=== PATIENT | female | born 1965 | race Caucasian/White ===

== ENCOUNTER 2019-03-18 12:25 | Emergency (ER) | payer OTHER ==
[~2019-03-18] VITALS: Ht 162.6 cm; Wt 112.5 kg
[2019-03-18 12:53] LABS: BASOPHILS ABSOLUTE AUTO 0.03 K/mm3 (0.00-0.23); BASOPHILS PERCENT AUTO 1 % (0-2); EOSINOPHILS ABSOLUTE AUTO 0.52 K/mm3 (0.00-0.68); EOSINOPHILS PERCENT AUTO 8 % (0-6); Hematocrit 40.3 % (33.0-51.0); Hemoglobin 13.5 g/dL (11.5-16.0); IMMATURE GRAN ABSOLUTE AUTO 0.01 K/mm3 (0.00-0.10); IMMATURE GRAN PERCENT AUTO 0 % (0-1); LYMPHOCYTES PERCENT AUTO 17 % (21-46); MONOCYTES ABSOLUTE AUTO 0.75 K/mm3 (0.16-1.47); MONOCYTES PERCENT AUTO 11 % (4-13); Mean Corpuscular HGB 29.9 pg (26.0-34.0); Mean Corpuscular HGB Conc 33.5 g/dL (31.5-36.5); Mean Corpuscular Volume 89 fL (80-100); Mean Platelet Volume 10.3 fL (9.1-12.4); NEUTROPHILS ABSOLUTE AUTO 4.22 K/mm3 (1.96-9.15); NEUTROPHILS PERCENT AUTO 64 % (41-73); Platelet Count 261 K/mm3 (150-400); RDW Coefficient Variation 12.4 % (11.7-14.2); RDW Standard Deviation 40.9 fL (35.1-46.3); Red Blood Cell Count 4.52 M/mm3 (3.80-5.20); White Blood Cell Count 6.63 K/mm3 (4.00-11.30)
[2019-03-18 13:19] LABS: Alanine Aminotransfer (ALT/SGP 33 U/L (12-78); Albumin, Blood 3.8 g/dL (3.4-5.0); Albumin/Globulin Ratio 1.1 (0.8-1.8); Alk Phos 64 U/L (50-136); Anion Gap 9 mmol/L (6-16); Aspartate Aminotrans (AST/SGOT 34 U/L (12-37); Bilirubin, Total 0.5 mg/dL (0.1-1.0); Blood Urea Nitrogen 6 mg/dL (8-24); Bun/Creatinine Ratio 9.9 (12.0-20.0); CO2, Blood 24 mmol/L (21-32); Calcium, Blood 8.8 mg/dL (8.5-10.1); Chloride, Blood 106 mmol/L (98-108); Creatinine, Blood 0.61 mg/dL (0.40-1.00); Globulin, Blood 3.5 g/dL (2.2-4.0); Glomerular Filtration Rate >60 (60-); Glucose, Blood 118 mg/dL (70-99); Potassium, Blood 3.2 mmol/L (3.5-5.5); Sodium, Blood 139 mmol/L (136-145); Total Protein, Blood 7.3 g/dL (6.4-8.2)
[2019-03-18] MEDS ORDERED: Prednisone20 MG PO (13:54)
[2019-03-18] MEDS ORDERED: Flonase 0.05% N16 GM (13:54)
[2019-03-18] MEDS ORDERED: MONT10T PO (13:54)
[2019-03-18] MEDS ORDERED: BENZ100A PO (13:54)
[2019-06-07] MEDS ORDERED: Zocor20 MG PO (16:27)
[2019-06-07] MEDS ORDERED: VITAMIN B122500 MCG PO (16:27)
[2019-06-07] MEDS ORDERED: THERA-D2000 UNIT PO (16:28)
[2019-06-07] MEDS ORDERED: FLUO10 PO (16:28)
[2019-06-07] MEDS ORDERED: Prempro 0.625-1 EACH PO (16:28)
[2019-06-07] MEDS ORDERED: ALBU90OI INH (16:30)
[2019-06-07] MEDS ORDERED: Questran4 GM PO (16:33)
== END 2019-03-18 14:26 | disposition home or self-care (01) ==
LOC: ER 12:25
PROVIDERS: Physician Assistant
DX: J98.01 Acute bronchospasm (principal); R06.00 Dyspnea, unspecified; Z79.899 Other long term (current) drug therapy; Z79.52 Long term (current) use of systemic steroids
CPT/HCPCS: 71046; 80053; 84484; 85025; 85379; 93005; 93010; 94640; 96374; 99285-25; J2930

== ENCOUNTER → 2019-04-01 | Outpatient (CLI) | payer OTHER ==
[~2019-04-01] MED LIST: ALBU90OI INH; BENZ100A PO; FLUO10 PO; Flonase 0.05% N16 GM; MONT10T PO; Prednisone20 MG PO; Prempro 0.625-1 EACH PO; Questran4 GM PO; THERA-D2000 UNIT PO; VITAMIN B122500 MCG PO; ZYRTEC10 M1 PO; Zocor20 MG PO
== END ==
LOC: LAB EV 14:49
DX: K52.9 Noninfective gastroenteritis and colitis, unspecified (principal)
CPT/HCPCS: 83993

== ENCOUNTER 2019-06-10 06:14 | Day surgery (SDC) | payer OTHER ==
[~2019-06-10] VITALS: Ht 162.6 cm; Wt 104.8 kg
[~2019-06-10 06:14] MED LIST changes: -ZYRTEC10 M1 PO
[2019-06-10] MEDS ORDERED: ZYRTEC10 M1 PO (06:38)
--- NOTE | 2019-06-10 06:45 | NUR ---
PT ADMITTED TO [facility]. AGREES WITH PLANNED SURGERY. LUNG SOUNDS CLEAR.
--- NOTE | 2019-06-10 10:13 | NUR ---
Discharge instructions reviewed with patient. Patient verbalizes understanding. Copy given to patient to take home. Discharged via wheelchair to private car for ride home WITH SPOUSE. BOTH PATIENT AND DENY QUESTIONS OR CONCERNS
--- NOTE | 2019-06-10 10:21 | NUR ---
06/10/19 [place] PATIENT'S PLASMA WAS GIVEN INTRAOPERATIVELY TOPICALLY OVER RIGHT GLUTEOUS MEDIUS TENDON BY DR. LITTLE
== END 2019-06-10 23:01 | disposition home or self-care (01) ==
LOC: ORSCMMR 06:14 → ORD 07:30 → ORSCMMR 07:30 → ORD 14:15 → ORSCMMR 23:01
PROVIDERS: Orthopaedic Surgery
PROC: 0YQ Anatomical Regions, Lower Extremities, Repair (ICD-10-PCS; principal; 2019-06-10 07:30)
DX: M76.01 Gluteal tendinitis, right hip (principal); M70.61 Trochanteric bursitis, right hip; J45.909 Unspecified asthma, uncomplicated; E78.5 Hyperlipidemia, unspecified; Z79.899 Other long term (current) drug therapy
CPT/HCPCS: J0690; J1100; J2250; J2370; J2405; J2704; J3010; J7120

== ENCOUNTER → 2019-09-22 | Outpatient (CLI) | payer OTHER ==
[~2019-09-22] MED LIST changes: +ZYRTEC10 M1 PO
[2019-09-23 14:07] LABS: HPV 16 Negative (Negative); HPV 18 Negative (Negative); HPV OTHER HR TYPES Negative (Negative)
== END ==
LOC: LAB 10:39 → LAB SHORT 10:39
PROVIDERS: Student in an Organized Health Care Education/Training Program
DX: Z01.419 Encounter for gynecological examination (general) (routine) without abnormal findings (principal)
CPT/HCPCS: 87624; G0145

== ENCOUNTER 2020-07-11 13:03 | Day surgery (SDC) | payer OTHER ==
[~2020-07-11] VITALS: Ht 162.6 cm; Wt 104.6 kg
[~2020-07-11 13:03] MED LIST changes: +FLUT.05NI
--- NOTE | 2020-07-11 14:08 | NUR ---
14 CC BLOOD DRAWN FROM IV SITE FOR PRP. BLOOD TAKEN TO SURGERY CENTER TO SPIN DOWN
--- NOTE | 2020-07-11 18:19 | NUR ---
ASSUMED CARE OF PATIENT FOR DISCHARGE. Discharge instructions reviewed with patient. Patient verbalizes understanding. Copy given to patient to take home. Discharged via wheelchair to private car for ride home.
== END 2020-07-11 23:11 | disposition home or self-care (01) ==
LOC: ORSCMMR 13:03 → ORD 15:15 → ORSCMMR 15:15
PROVIDERS: Orthopaedic Surgery
PROC: 0LBM0ZZ Excision of Left Upper Leg Tendon, Open Approach (ICD-10-PCS; principal; 2020-07-11 14:30)
PROC: 0LQM0ZZ Repair Left Upper Leg Tendon, Open Approach (ICD-10-PCS; principal; 2020-07-11 14:30)
DX: M70.62 Trochanteric bursitis, left hip (principal); J45.909 Unspecified asthma, uncomplicated; G47.33 Obstructive sleep apnea (adult) (pediatric); Z79.899 Other long term (current) drug therapy; E66.01 Morbid (severe) obesity due to excess calories; Z68.39 Body mass index [BMI] 39.0-39.9, adult
CPT/HCPCS: A9270; C1713; J0690; J1100; J1885; J2250; J2370; J2405; J2704; J2710; J3010; J7120

== ENCOUNTER 2022-06-17 06:15 | Day surgery (SDC) | payer OTHER ==
[~2022-06-17] VITALS: Ht 162.6 cm; Wt 94.8 kg
[~2022-06-17 06:15] MED LIST changes: +GABA100 PO; +QUDEXY PO
--- NOTE | 2022-06-17 07:10 | NUR ---
Ambulatory in Day Surgery. History, Chart, Medications and Allergies reviewed before start of procedure.Lungs clear T/O to Auscultation. Patient confirms NPO status and agrees with scheduled surgery. Pre-Op teaching done. Pt verbalizes understanding.
--- NOTE | 2022-06-17 12:03 | NUR ---
PT ARRIVED TO THE ROOM AT 1140. PT ALERT AND ORIENTED UPON ARRIVAL TO ROOM. PT REPORTS PAIN IS 2/10, OXYCODONE GIVEN. PT DENIES NAUSEA, PT EDUCATED TO EAT A CRACKER AND SOME JELLO WITH THE PAIN MEDICATION. PT IS ABLE TO MOVE ALL EXTREMITIES. BLE WEAK R/T SPINAL ANESTHESIA, PT REPORTS DECREASED SENSATION TO RLE AT THIS TIME. WILL CONTINUE TO MONITOR FOR RETURNED SENSATION/STRENGTH TO BLE. R HIP INCISION COVERED WITH PRINEO DRESSING, NO DRAINAGE. POLAR PACK IN PLACE. PT EDUCATED TO USE INCENTIVE SPIROMETER. VSS AT THIS TIME.
--- NOTE | 2022-06-17 14:11 | NUR ---
LOW BLOOD PRESSURE BP 91/49, HR 81. PT JUST WORKED WITH THERAPY PRIOR TO DROP IN BP. PT DENIES SYMPTOMS. IV FLUIDS RUNNING. MESSAGE LEFT FOR DR. PAUL TO CALL REGARDING LOW BP.
--- NOTE | 2022-06-17 19:59 | NUR ---
SHIFT SUMMARY PT IS POD#1 FROM [facility] WITH DR. PAUL. PAIN MANAGED WITH TORADOL, TYLENOL AND GABAPENTIN, POST OP. PT TOOK OXY X1 AND REPORTED SHE WOULD PREFER TO STAY AWAY FROM NARCOTIC PAIN MEDICATION. PT WORKED WITH PHYSICAL THERAPY X1 AND IS A 1 ASSIST. PT HAD A LOW BP THIS SHIFT, AND HAD NS 500ML X2. PT TOLERATING PO, SHE HAS BEEN ABLE TO VOID. VSS. REPORT GIVEN TO RIAZ SANFORD.
--- NOTE | 2022-06-17 23:41 | NUR ---
ASSUMED CARE OF PATIENT. PATIENT RESTING IN BED, MEDICATED FOR PAIN, CALL LIGHT IN REACH.
--- NOTE | 2022-06-18 04:10 | NUR ---
POD1 FOR A LEFT TOTAL HIP. VSS. NO ACUTE CHANGES SINCE ASSUMING CARE. THE PT HAS SLEPT WELL T/O THE NIGHT. PAIN HAS BEEN MANAGED WITH OXY, TORADOL, AND TYLENOL. PATIENT HAS BEEN ABLE TO AMBULATE WITH ONE ASSIST TO THE BATHROOM, VOIDING W/O DIFFICULTY. TOLLERATING PO INTAKE. PLAN TO WORK WITH PT TODAY BEFORE DISCHARGE. PT IS CURRENTLY SLEEPING, IN NO DISTRESS. CALL LIGHT IN REACH.
[2022-06-18 06:11] LABS: BASOPHILS ABSOLUTE AUTO 0.03 K/mm3 (0.00-0.23); BASOPHILS PERCENT AUTO 0 % (0-2); EOSINOPHILS ABSOLUTE AUTO 0.04 K/mm3 (0.00-0.68); EOSINOPHILS PERCENT AUTO 0 % (0-6); Hematocrit 30.1 % (33.0-51.0); Hemoglobin 10.2 g/dL (11.5-16.0); IMMATURE GRAN ABSOLUTE AUTO 0.04 K/mm3 (0.00-0.10); IMMATURE GRAN PERCENT AUTO 0 % (0-1); LYMPHOCYTES ABSOLUTE AUTO 1.89 K/mm3 (0.84-5.20); LYMPHOCYTES PERCENT AUTO 20 % (21-46); MONOCYTES ABSOLUTE AUTO 0.87 K/mm3 (0.16-1.47); MONOCYTES PERCENT AUTO 9 % (4-13); Mean Corpuscular HGB 30.3 pg (26.0-34.0); Mean Corpuscular HGB Conc 33.9 g/dL (31.5-36.5); Mean Corpuscular Volume 89 fL (80-100); Mean Platelet Volume 10.2 fL (9.1-12.4); NEUTROPHILS ABSOLUTE AUTO 6.52 K/mm3 (1.96-9.15); NEUTROPHILS PERCENT AUTO 70 % (41-73); Platelet Count 241 K/mm3 (150-400); RDW Coefficient Variation 12.8 % (11.7-14.2); RDW Standard Deviation 41.9 fL (35.1-46.3); Red Blood Cell Count 3.37 M/mm3 (3.80-5.20); White Blood Cell Count 9.39 K/mm3 (4.00-11.30)
[2022-06-18 06:26] LABS: Bun/Creatinine Ratio 21.4 (12.0-20.0); Calcium, Blood 8.2 mg/dL (8.5-10.1); Creatinine, Blood 0.61 mg/dL (0.40-1.00); Magnesium, Blood 1.8 mg/dL (1.6-2.4); Potassium, Blood 3.4 mmol/L (3.5-5.5)
[2022-06-18] MEDS ORDERED: OXYC5 PO (10:29)
--- NOTE | 2022-06-18 12:08 | NUR ---
DISCHARGE SUMMARY PT A&OX4, VSS/RA, MARCELINO PO, VOIDING WELL/BM, AMB SBA FWW/GB, UP TO CHAIR, AMB IN ROOM TO BRP, IV DC'D. LEFT FLOOR VIA WC WITH ATTENDANCE CLERK TO GO HOME WITH , WITH ALL PERSONAL POSSESSIONS INCLUDING DC PACKET, AQUACEL DRESSINGS X2, POLAR RASHAD, DC INS PROVIDED. PT AND REPORTED UNDERSTANDING THOSE INSTRUCTIONS INCLUDING AQUACEL DRESSING CHANGES (OVER PRINEO), OK TO SHOWER, PAIN MANAGEMENT, SHORT FREQU AMB WITH FWW AND FU OUTPT PT.
--- NOTE | 2022-06-18 15:46 | NUR ---
06/18/22 1546 Alberta Baez VERIFICATIONS, AUDITS
== END 2022-06-18 11:00 | disposition home or self-care (01) ==
LOC: ORSCMMR 06:15 → ORD 07:30 → ORSCMMR 07:30 → ORD 10:00 → SURS 11:16 → ORSCMMR 06-18 11:00
PROVIDERS: Orthopaedic Surgery
PROC: 0SRB0JA Replacement of Left Hip Joint with Synthetic Substitute, Uncemented, Open Approach (ICD-10-PCS; principal; 2022-06-17 07:30)
DX: M16.12 Unilateral primary osteoarthritis, left hip (principal); F32.A Depression, unspecified; E78.00 Pure hypercholesterolemia, unspecified; Z79.899 Other long term (current) drug therapy; E66.9 Obesity, unspecified; Z68.35 Body mass index [BMI] 35.0-35.9, adult
CPT/HCPCS: 36415; 72170; 80048; 83735; 85025; 94760; 97110; 97110-CQ; 97116; 97116-CQ; 97162; 97530-CQ; A9270; C1713; C1776; J0171; J0690; J0735; J1100; J1885; J2250; J2405; J2704; J2795; J3010; J7030; J7120

== ENCOUNTER 2022-10-09 15:01 | Inpatient (IN) | payer OTHER ==
[~2022-10-09] VITALS: Ht 162.6 cm; Wt 98.0 kg
[~2022-10-09 15:01] MED LIST changes: +OXYC5 PO
[2022-10-09 15:29] LABS: BASOPHILS ABSOLUTE AUTO 0.06 K/mm3 (0.00-0.23); BASOPHILS PERCENT AUTO 1 % (0-2); EOSINOPHILS ABSOLUTE AUTO 0.13 K/mm3 (0.00-0.68); EOSINOPHILS PERCENT AUTO 2 % (0-6); Hematocrit 38.4 % (33.0-51.0); Hemoglobin 12.5 g/dL (11.5-16.0); IMMATURE GRAN ABSOLUTE AUTO 0.01 K/mm3 (0.00-0.10); IMMATURE GRAN PERCENT AUTO 0 % (0-1); LYMPHOCYTES ABSOLUTE AUTO 2.51 K/mm3 (0.84-5.20); LYMPHOCYTES PERCENT AUTO 31 % (21-46); MONOCYTES ABSOLUTE AUTO 0.54 K/mm3 (0.16-1.47); MONOCYTES PERCENT AUTO 7 % (4-13); Mean Corpuscular HGB Conc 32.6 g/dL (31.5-36.5); Mean Corpuscular Volume 83 fL (80-100); Mean Platelet Volume 10.3 fL (9.1-12.4); NEUTROPHILS ABSOLUTE AUTO 4.91 K/mm3 (1.96-9.15); NEUTROPHILS PERCENT AUTO 60 % (41-73); Platelet Count 348 K/mm3 (150-400); RDW Coefficient Variation 14.6 % (11.7-14.2); RDW Standard Deviation 44.2 fL (35.1-46.3); Red Blood Cell Count 4.63 M/mm3 (3.80-5.20); White Blood Cell Count 8.16 K/mm3 (4.00-11.30)
[2022-10-09 15:53] LABS: Albumin, Blood 3.7 g/dL (3.4-5.0); Albumin/Globulin Ratio 1.1 (0.8-1.8); Bilirubin, Total 0.6 mg/dL (0.1-1.0); Bun/Creatinine Ratio 18.4 (12.0-20.0); Creatinine, Blood 0.76 mg/dL (0.40-1.00); Globulin, Blood 3.4 g/dL (2.2-4.0); Potassium, Blood 3.2 mmol/L (3.5-5.5); Total Protein, Blood 7.1 g/dL (6.4-8.2)
[2022-10-09 16:12] LABS: International Normalized Ratio 1.07; Prothrombin Time Results 11.2 Sec (9.7-11.5)
--- NOTE | 2022-10-09 18:14 | NUR ---
ASSUMPTION OF CARE/SHIFT SUMMARY PT ARRIVED TO PCU APPROX 1700 FROM [facility] APPROX. 1700, WAS ALSO AT BEDSIDE. VSS, SHE IS ON RA. TR BAND IS IN PLACE ON R RADIAL SITE, NO BLEEDING NOTED, NO HEMATOMA NOTED, RADIAL PULSE IS STRONG. SHE DENIES FEELINGS OF CHEST PAIN/PRESSURE. ECHO RESULTS PENDING. WILL CONTINUE TO MONITOR UNTIL REPORT GIVEN. CALL LIGHT IS IN REACH.
--- NOTE | 2022-10-09 21:37 | NUR ---
SHIFT SUMMARY PT TR BAND FULLY DEFLATED AT 2004. NO ISSUES WITH BLEEDING OR SWELLING. PT DICSCHARGED @ 211 AND CHOSE TO WALK OUT ON HER OWN. WAS WITH PT AT TIME OF DISCHARGE.
== END 2022-10-09 21:20 | disposition home or self-care (01) | DRG 287 ==
LOC: ER 15:01 → PCU 15:02 → ER 16:15 → PCU 17:07
PROVIDERS: Emergency Medicine; ADMIT Internal Medicine
PROC: 4A023N7 Measurement of Cardiac Sampling and Pressure, Left Heart, Percutaneous Approach (ICD-10-PCS; principal; 2022-10-09)
PROC: B211YZZ Fluoroscopy of Multiple Coronary Arteries using Other Contrast (ICD-10-PCS; 2022-10-09)
PROC: B24BZZ3 Ultrasonography of Heart with Aorta, Intravascular (ICD-10-PCS; 2022-10-09)
DX: I25.110 Atherosclerotic heart disease of native coronary artery with unstable angina pectoris (principal); E66.9 Obesity, unspecified; E78.5 Hyperlipidemia, unspecified; F32.A Depression, unspecified; Z96.642 Presence of left artificial hip joint; Z68.35 Body mass index [BMI] 35.0-35.9, adult; Z88.8 Allergy status to other drugs, medicaments and biological substances; Z79.51 Long term (current) use of inhaled steroids; Z79.899 Other long term (current) drug therapy
CPT/HCPCS: 36415; 76937; 80053; 83735; 84484; 85025; 85610; 93005; 93010; 93306; 93454; 96374; 99152; 99153; 99285-25; A9270; C1769; C1887; C1894; J1644; J2250; J3010; J7030; J7040; Q9967